=== PATIENT | male | born 1955 | race Caucasian/White ===

== ENCOUNTER 2017-04-09 01:33 | Inpatient (IN) ==
--- NOTE | 2017-04-03 08:48 | EKG Report ---
Test Performed on : 04/03/2017 08:04:38 AM Test Reason : JOINT CAMP Blood Pressure : / mmHG Vent. Rate : 080 BPM Atrial Rate : 080 BPM P-R Int : 164 ms QRS Dur : 088 ms QT Int : 352 ms P-R-T Axes : 028 -41 020 degrees QTc Int : 405 ms Normal sinus rhythm. Left axis deviation Abnormal ECG No previous ECGs available Confirmed by Shae PARK, Mikal Zurita ([id number]) on 04/05/2017 6:38:14 AM
[2017-04-03 09:35] LABS: MANUAL DIFF NEEDED? NO; URINE MICRO REVIEW NEEDED? NO; URINE SOURCE CLEAN CATCH
[2017-04-03 09:37] LABS: BASO% 0.3 % (0.0-0.8); EOS# 0.39 X1000 (0.0-0.7); EOS% 6.3 % (0.0-10.0); HEMATOCRIT 46.3 % (42.0-52.0); HEMOGLOBIN 15.9 g/dL (14.0-18.0); LYMPH# 2.22 X1000 (1.2-3.4); MCH 35.2 PG (27-31); MCHC 34.3 g/dL (33-37); MCV 102.4 FL (81-99); MONO# 0.83 X1000 (0.11-0.59); MONO% 13.5 % (1.7-9.3); MPV 9.9 FL (7.4-10.4); NEUT% 43.9 % (42.2-75.2); PLT 219 X1000 (130-400); RBC 4.52 XMIL (4.7-6.1)
[2017-04-03 09:39] LABS: BILIRUBIN URINE NEGATIVE (NEGATIVE); BLOOD URINE NEGATIVE (NEGATIVE); COLOR YELLOW; GLUCOSE URINE NEGATIVE (NEGATIVE); LEUKOCYTES URINE NEGATIVE (NEGATIVE); NITRITE URINE NEGATIVE (NEGATIVE); PROTEIN URINE NEGATIVE (NEGATIVE); SP GRAVITY URINE 1.009; TURBIDITY URINE CLEAR (CLEAR); UROBILINOGEN URINE NORMAL (NORMAL)
[2017-04-03 09:41] LABS: UR EPITHELIAL CELLS <10 /HPF (<10); URINE BACTERIA NEGATIVE /HPF; URINE RBC <10 /HPF (<10); URINE WBC <10 /HPF (<10)
[2017-04-03 09:55] LABS: INR 0.96; PTT 27.1 Seconds (22.0-36.0)
[2017-04-03 10:02] LABS: AGAP 12; BUN 16 mg/dL (8-22); CALCIUM 8.7 mg/dL (8.8-10.2); CHLORIDE 106 mmol/L (98-107); COSMO 283; POTASSIUM 4.6 mmol/L (3.5-5.1); SODIUM 141 mmol/L (136-145); TCO2 23 mmol/L (25-35)
[2017-04-09] MEDS ORDERED: PEPCID ONE (05:37)
[2017-04-09] MEDS ORDERED: COLACE ONE (05:37)
[2017-04-09] MEDS ORDERED: LYRICA ONE (05:37)
[2017-04-09] MEDS ORDERED: REGLAN ONE (05:37)
[2017-04-09] MEDS ORDERED: VANCOMYCIN 1 GM/NS 1 GM/250 ML IVPB ONE (05:37)
[2017-04-09] MEDS ORDERED: CELEBREX ONE (05:37)
[2017-04-09] MEDS ORDERED: LR 1,000 ML ONE (05:38)
[2017-04-09] MEDS ORDERED: DIPRIVAN 1% ONE ×2 (06:40→06:41)
[2017-04-09] MEDS ORDERED: XYLOCAINE-MPF 2% ONE (06:41)
[2017-04-09] MEDS ORDERED: VERSED ONE (06:41)
[2017-04-09] MEDS ORDERED: FENTANYL ONE (06:41)
[2017-04-09] MEDS ORDERED: ROBINUL ONE (06:41)
[2017-04-09] MEDS ORDERED: DURAMORPH ONE (06:47)
[2017-04-09] MEDS ORDERED: MARCAINE 0.25% PF ONE (06:47)
[2017-04-09] MEDS ORDERED: TORADOL ONE ×2 (06:47→08:17)
[2017-04-09] MEDS ORDERED: VANCOMYCIN ONE (06:47)
[2017-04-09] MEDS ORDERED: NEOSPORIN G.U. IRRIGANT ONE (06:48)
[2017-04-09] MEDS ORDERED: SODIUM CHLORIDE 0.9% ONE (06:48)
[2017-04-09] MEDS ORDERED: CYKLOKAPRON 1,000 MG/NS 1,000 MG/100 ML IVPB ONE ×2 (06:48→06:49)
[2017-04-09] MEDS ORDERED: EXPAREL 1.3% ONE (06:48)
[2017-04-09 06:53] LABS: ALBUMIN 4.3 g/dL (3.5-5.0); ALKALINE PHOSPHATASE 54 U/L (32-122); DIRECT BILIRUBIN < 0.20 mg/dL (0.00-0.20); GOT 25 U/L (10-34); GPT 18 U/L (10-44); TOTAL BILIRUBIN 0.55 mg/dL (0.20-1.00); TOTAL PROTEIN 7.2 g/dL (6.3-8.3)
[2017-04-09] MEDS ORDERED: DECADRON ONE (07:43)
[2017-04-09] MEDS ORDERED: EPHEDRINE ONE (07:53)
[2017-04-09] MEDS ORDERED: NEO-SYNEPHRINE ONE (07:53)
[2017-04-09] MEDS ORDERED: ZOFRAN ONE (08:16)
[2017-04-09 08:17] LABS: URINE MICRO REVIEW NEEDED? NO; URINE SOURCE CATH
[2017-04-09 08:24] LABS: BILIRUBIN URINE NEGATIVE (NEGATIVE); BLOOD URINE NEGATIVE (NEGATIVE); COLOR YELLOW; GLUCOSE URINE NEGATIVE (NEGATIVE); LEUKOCYTES URINE NEGATIVE (NEGATIVE); NITRITE URINE NEGATIVE (NEGATIVE); PROTEIN URINE NEGATIVE (NEGATIVE); SP GRAVITY URINE 1.017; TURBIDITY URINE CLEAR (CLEAR); UROBILINOGEN URINE NORMAL (NORMAL)
[2017-04-09 08:26] LABS: UR EPITHELIAL CELLS <10 /HPF (<10); URINE BACTERIA NEGATIVE /HPF; URINE RBC <10 /HPF (<10); URINE WBC <10 /HPF (<10)
[2017-04-09] MEDS ORDERED: NS 1,000 ML ONE (09:17)
--- NOTE | 2017-04-09 09:22 | OPERATIVE NOTE ---
PROCEDURE DATE: 04/09/2017 PREOPERATIVE DIAGNOSIS: Degenerative joint disease, right knee. POSTOPERATIVE DIAGNOSIS: Degenerative joint disease, right knee. PROCEDURE PERFORMED: Right total knee replacement. SURGEON: Pavan Marcial MD. UNDERWRITING CONSULTANT: MILA Briones. ANESTHESIA: Spinal. COMPLICATION: None. PROCEDURE IN DETAIL: A 61-year-old male presents for right knee replacement. Risks, benefits, and no guarantees were discussed, and he is willing to proceed. He was taken the operating room and satisfactory anesthesia obtained. The right leg was prepped and draped in usual sterile fashion. A time-out was taken to confirm operative site, procedure, and patient. The leg was wrapped with an Esmarch. Tourniquet inflated to 350 mmHg. A midline incision was made over the front of the knee followed by a quad tendon sparing arthrotomy. The patella was everted and resurfaced with freehand technique. It was then subluxed laterally and the knee flexed. An intramedullary hole was made in the distal femur, and the distal femoral cutting block secured in 5 degrees of valgus. 10 mm of bone was taken off the distal femur, and the femur sized to a DePuy Attune size 5 component. The 4-in-1 block was secured and the anterior, posterior, and chamfer cuts sequentially made. Care was taken to preserve the PCL and collateral ligaments. Any osteophytes were debrided about the femur. The knee was flexed and a PCL retractor placed behind the tibia to protect the PCL neurovascular bundle. The tibial cutting block was secured with an extramedullary alignment iona. The tibial resection made with good balance of the flexion-extension gaps. The tibia was sized to a size 5 tibial tray. Trial reduction was performed with a size 5 tibial and femoral implants with good range of motion and stability with an 8 mm thick poly. The patella was sized to a 35 medialized dome patella, and the drill holes made for the patella and femoral implants. The trial implants were removed. The bony surfaces thoroughly irrigated with pulsatile lavage. Cement with a gram of vancomycin was utilized to cement a DePuy Attune size 5 rotating platform, base plate a size right cruciate-retaining femoral component, and a 35 medialized dome patella. While the cement cured, the joint capsule was injected with Exparel and a Hemovac drain placed. Afterwards, any remaining cement was removed. An 8 mm rotating platform poly was inserted into the tibial tray and the knee reduced. Final range of motion was 0-125 degrees with midline patellar tracking. The arthrotomy was copiously irrigated and then closed over the drain with #1 Vicryl in the arthrotomy, 2-0 Vicryl in the subcutaneous, and skin edelmira on the skin edges. Sterile dressings were applied. Tourniquet released with good return of capillary blood flow. The patient was recovered from anesthesia and transferred to the recovery room in stable condition. No intraoperative complications were noted. Instrument count and sponge count was correct at the time of closure. cc: Miguelito Marcial MD
--- NOTE | 2017-04-09 09:41 | Diag Imaging Result Doc PS360 ---
EXAM: KNEE 1-2 VIEWS-RIGHT INDICATION: right total knee TECHNIQUE: 2 views COMPARISON: None. FINDINGS: There has been a recent right knee arthroplasty. The arthroplasty hardware is in the expected position. There is no evidence of periprosthetic fracture. Anterior skin edelmira and a drainage catheter are in place. IMPRESSION: Satisfactory postoperative knee. Electronically signed by Miguelito Lovell 04/09/2017 9:38 AM
[2017-04-09] MEDS ORDERED: TYLENOL PO SCH (10:30)
[2017-04-09] MEDS ORDERED: ZOFRAN IV PRN (10:30)
[2017-04-09] MEDS ORDERED: AMBIEN PO PRN (10:30)
[2017-04-09] MEDS ORDERED: MORPHINE IV PRN (10:30)
[2017-04-09] MEDS: WELLBUTRIN SR PO SCH ×2 (11:15→20:19)
[2017-04-09] MEDS: CENTRUM SILVER PO SCH (11:15)
[2017-04-09] MEDS: CULTURELLE PO SCH (11:16)
[2017-04-09] MEDS: ULTRAM PO SCH ×3 (11:18→23:21)
[2017-04-09] MEDS: FLOMAX PO SCH (11:18)
[2017-04-09] MEDS: SINGULAIR PO SCH (11:19)
[2017-04-09] MEDS: OXY IR PO PRN ×4 (12:40→23:40)
--- NOTE | 2017-04-09 13:23 | PROGRESS NOTE ---
DATE: 04/09/2017 PROGRESS/POSTOP NOTE: Mr. Ferrer is seen today postop status post total knee. At the present time, he is afebrile with stable vital signs. He is alert and oriented. The dressing is clean and dry. He appears to be motor and sensory intact with good capillary refill and motion over the lower extremity. At present time, he is stable. cc: Miguelito Marcial MD
[2017-04-09] MEDS ORDERED: VANCOMYCIN 1 GM/NS 1 GM/250 ML IVPB IV ONE (18:30)
[2017-04-09] MEDS: LYRICA PO SCH (20:19)
[2017-04-09] MEDS: COLACE PO SCH (20:19)
[2017-04-09] MEDS: CELEBREX PO SCH (20:19)
[2017-04-09] MEDS: NS 1,000 ML IV SCH (23:37)
[2017-04-10] MEDS: OXY IR PO PRN ×6 (03:09→21:50)
[2017-04-10] MEDS: ULTRAM PO SCH ×4 (04:21→22:44)
[2017-04-10] MEDS: XARELTO PO SCH (05:43)
[2017-04-10 05:55] LABS: HEMATOCRIT 39.5 % (42.0-52.0); HEMOGLOBIN 13.8 g/dL (14.0-18.0)
[2017-04-10 06:05] LABS: AGAP 14; BUN 10 mg/dL (8-22); CALCIUM 8.2 mg/dL (8.8-10.2); CHLORIDE 107 mmol/L (98-107); COSMO 281; POTASSIUM 4.2 mmol/L (3.5-5.1); SODIUM 141 mmol/L (136-145); TCO2 20 mmol/L (25-35)
[2017-04-10] MEDS: NS 1,000 ML IV SCH ×2 (06:42→10:45)
--- NOTE | 2017-04-10 07:38 | PROGRESS NOTE ---
DATE: 04/10/2017 Mr. Ferrer is seen today, postop day 1 status post total knee replacement. He is doing well at the present time. He is afebrile with stable vital signs. His bandage is clean and dry. There is no signs of DVT or Homans sign. He will be mobilized with physical therapy today. He is planning on discharge to inpatient rehab. We will have social workers start working on that. We will remove all lines, Campos, and catheter today. cc: Miguelito Marcial MD
[2017-04-10] MEDS: CELEBREX PO SCH ×2 (09:00→10:39)
[2017-04-10] MEDS: PERIDEX MT SCH ×2 (10:37→21:02)
[2017-04-10] MEDS: COLACE PO SCH ×2 (10:38→21:02)
[2017-04-10] MEDS: CENTRUM SILVER PO SCH (10:39)
[2017-04-10] MEDS: FLOMAX PO SCH (10:39)
[2017-04-10] MEDS: LYRICA PO SCH ×2 (10:40→21:02)
[2017-04-10] MEDS: WELLBUTRIN SR PO SCH ×2 (10:40→21:02)
[2017-04-10] MEDS: PEPCID PO SCH (10:40)
[2017-04-10] MEDS: CULTURELLE PO SCH (10:40)
[2017-04-10] MEDS: SINGULAIR PO SCH (10:41)
[2017-04-11] MEDS: OXY IR PO PRN ×5 (02:46→18:59)
[2017-04-11] MEDS: MILK OF MAGNESIA PO PRN ×2 (02:46→11:56)
[2017-04-11] MEDS: ULTRAM PO SCH ×3 (03:47→17:08)
[2017-04-11] MEDS: XARELTO PO SCH (05:14)
[2017-04-11 05:30] LABS: HEMATOCRIT 35.7 % (42.0-52.0); HEMOGLOBIN 12.3 g/dL (14.0-18.0)
[2017-04-11] MEDS: COLACE PO SCH (08:24)
[2017-04-11] MEDS: CENTRUM SILVER PO SCH (08:24)
[2017-04-11] MEDS: CELEBREX PO SCH (08:24)
[2017-04-11] MEDS: WELLBUTRIN SR PO SCH (08:25)
[2017-04-11] MEDS: SINGULAIR PO SCH (08:25)
[2017-04-11] MEDS: PEPCID PO SCH (08:26)
[2017-04-11] MEDS: FLOMAX PO SCH (08:26)
[2017-04-11] MEDS: LYRICA PO SCH (08:26)
[2017-04-11] MEDS: CULTURELLE PO SCH (08:26)
[2017-04-11] MEDS: PERIDEX MT SCH (08:27)
--- NOTE | 2017-04-11 13:18 | PROGRESS NOTE ---
DATE: 04/11/2017 SUBJECTIVE: Mr. Ferrer is seen today status post total knee replacement. He is afebrile with stable vital signs. His hematocrit is stable at the present time. Incisions clean and dry. There is no evidence of DVT or infection. He is mobilizing well. Currently we are awaiting inpatient rehab approval. cc: Miguelito Marcial MD
[2017-04-11] MEDS: NS 1,000 ML IV SCH (14:53)
[2017-04-11 16:06] VITALS: BP 111/74
--- NOTE | 2017-04-12 04:02 | DISCHARGE SUMMARY ---
ADMISSION DATE: 04/09/2017 DISCHARGE DATE: 04/11/2017 ADMISSION DIAGNOSIS: Degenerative joint disease right knee. DISCHARGE DIAGNOSES: Degenerative joint disease right knee with acute blood loss anemia. ADMITTING HISTORY AND HOSPITAL COURSE: This 61-year-old male presents for surgical knee replacement. He was admitted to the hospital and underwent a right knee replacement without complications. Postoperatively, he was mobilized full weightbearing and steadily progressed. He did have a drop in his hematocrit but did not receive a transfusions. He is asymptomatic. At the present time there is no active bleeding. His incision is clean and dry. He is mobilizing well independently. There is no signs of deep venous thrombosis. He is discharged home on [place] 10 as needed for pain and Xarelto 10 mg daily for 2 weeks for DVT prophylaxis. He is also to continue his home medicines consisting of Wellbutrin 150 mg b.i.d., probiotic capsule, he takes a supplement, Singulair which is his home medicine, multivitamin supplementation, and Flomax 0.4 mg daily. He is to return to see me in roughly 10 days time for repeat followup. He is to return in the interim for any worsening signs or symptoms. He can shower upon discharge and progress with physical therapy full weightbearing. cc: Miguelito Marcial MD
== END 2017-04-11 19:00 | disposition home or self-care (01) ==
LOC: SURHOLD 01:33 → 4N 08:14
PROVIDERS: ADMIT Orthopaedic Surgery Adult Reconstructive Orthopaedic Surgery; ATTEND Orthopaedic Surgery Adult Reconstructive Orthopaedic Surgery